=== PATIENT | male | born 1940 | race Two or more races ===

== ENCOUNTER → 2024-10-01 | Outpatient (BNVA) | payer MEDICARE, MEDICAID, SELFPAY | END | disposition home or self-care (01) | PROVIDERS: PCP Nurse Practitioner Family; Referring Provider Nurse Practitioner Family; Visit Provider Nurse Practitioner Family | DX: I10 Essential (primary) hypertension (principal); M25.50 Pain in unspecified joint; R41.3 Other amnesia | CPT/HCPCS: 99213 ==

== ENCOUNTER → 2024-12-17 | Outpatient (BNVA) | payer MEDICARE, MEDICAID, SELFPAY | END | disposition home or self-care (01) | PROVIDERS: PCP Nurse Practitioner Family; Referring Provider Nurse Practitioner Family; Visit Provider Nurse Practitioner Family | DX: Z71.2 Person consulting for explanation of examination or test findings (principal); E78.5 Hyperlipidemia, unspecified; R73.03 Prediabetes | CPT/HCPCS: 99212; G0463 ==

== ENCOUNTER → 2025-02-03 | Outpatient (BNVA) | payer MEDICARE, MEDICAID, SELFPAY | END | disposition home or self-care (01) | PROVIDERS: PCP Nurse Practitioner Family; Referring Provider Nurse Practitioner Family; Visit Provider Nurse Practitioner Family | DX: M25.551 Pain in right hip (principal); R41.3 Other amnesia; R52 Pain, unspecified; R60.9 Edema, unspecified; I10 Essential (primary) hypertension; R53.83 Other fatigue; Z91.199 Patient's noncompliance with other medical treatment and regimen due to unspecified reason | CPT/HCPCS: 85018; 96372; 99215; J1885 ==

== ENCOUNTER → 2025-02-06 | Outpatient (CLI) | payer MEDICARE, MEDICAID, SELFPAY ==
--- NOTE | 2025-02-06 11:47 | XR_ITS ---
Examination: Bilateral hips, AP pelvis, 5 views Technique: AP, lateral views both hips, AP pelvis, 5 views Exam date and time: February 06, 2025 1408 hours INDICATIONS: Right hip pain this week FINDINGS: Moderate osteopenia Moderate narrowing hip joints bilaterally Greater trochanteric bursitis bilaterally Bones of the pelvis intact IMPRESSION: Moderate bilateral narrowing hip joints Bilateral greater trochanteric bursitis
== END | disposition home or self-care (01) ==
LOC: SDIM 11:40
PROVIDERS: PCP Nurse Practitioner Family; Referring Provider Nurse Practitioner Family; Visit Provider Nurse Practitioner Family
DX: M70.62 Trochanteric bursitis, left hip (principal); M70.61 Trochanteric bursitis, right hip; M25.852 Other specified joint disorders, left hip; M25.851 Other specified joint disorders, right hip
CPT/HCPCS: 73522

== ENCOUNTER → 2025-02-06 | Outpatient (BNVA) | payer MEDICARE, MEDICAID, SELFPAY | END | disposition home or self-care (01) | PROVIDERS: PCP Nurse Practitioner Family; Referring Provider Nurse Practitioner Family; Visit Provider Nurse Practitioner Family | DX: Z71.2 Person consulting for explanation of examination or test findings (principal); M25.559 Pain in unspecified hip; M71.9 Bursopathy, unspecified; M25.50 Pain in unspecified joint | CPT/HCPCS: 99212; G0463 ==

== ENCOUNTER → 2025-02-21 | Outpatient (BNVA) | payer MEDICARE, MEDICAID, SELFPAY | END | disposition home or self-care (01) | PROVIDERS: PCP Nurse Practitioner Family; Referring Provider Nurse Practitioner Family; Visit Provider Nurse Practitioner Family | DX: R53.83 Other fatigue (principal); R60.9 Edema, unspecified; Z23 Encounter for immunization | CPT/HCPCS: 90471; 90677; 99213; G0009; J90677 ==

== ENCOUNTER → 2025-03-24 | Outpatient (BNVA) | payer MEDICARE, MEDICAID, SELFPAY | END | disposition home or self-care (01) | PROVIDERS: PCP Nurse Practitioner Primary Care; Referring Provider Nurse Practitioner Primary Care; Visit Provider Nurse Practitioner Primary Care | DX: J20.9 Acute bronchitis, unspecified (principal) | CPT/HCPCS: 87804; 87811; 99214 ==

== ENCOUNTER → 2025-04-10 | Outpatient (BNVA) | payer MEDICARE, MEDICAID, SELFPAY | END | disposition home or self-care (01) | PROVIDERS: PCP Nurse Practitioner Family; Referring Provider Nurse Practitioner Family; Visit Provider Nurse Practitioner Primary Care | DX: N40.0 Benign prostatic hyperplasia without lower urinary tract symptoms (principal) | CPT/HCPCS: 99212; G0463 ==

== ENCOUNTER → 2025-04-17 | Outpatient (BNVA) | payer MEDICARE, MEDICAID, SELFPAY | END | disposition home or self-care (01) | PROVIDERS: PCP Nurse Practitioner Family; Referring Provider Nurse Practitioner Family; Visit Provider Nurse Practitioner Family | DX: Z00.01 Encounter for general adult medical examination with abnormal findings (principal); I10 Essential (primary) hypertension; N40.0 Benign prostatic hyperplasia without lower urinary tract symptoms; E78.5 Hyperlipidemia, unspecified; R73.03 Prediabetes; E66.3 Overweight; Z68.25 Body mass index [BMI] 25.0-25.9, adult; Z91.199 Patient's noncompliance with other medical treatment and regimen due to unspecified reason; Z71.85 Encounter for immunization safety counseling; K02.9 Dental caries, unspecified | CPT/HCPCS: 99173; 99215 ==

== ENCOUNTER → 2025-04-23 | Outpatient (BNVA) | payer MEDICARE, MEDICAID, SELFPAY | END | disposition home or self-care (01) | PROVIDERS: PCP Nurse Practitioner Family; Referring Provider Nurse Practitioner Family; Visit Provider Nurse Practitioner Family | DX: Z71.2 Person consulting for explanation of examination or test findings (principal); N39.0 Urinary tract infection, site not specified; R73.03 Prediabetes; Z91.199 Patient's noncompliance with other medical treatment and regimen due to unspecified reason; E78.5 Hyperlipidemia, unspecified | CPT/HCPCS: 99212; G0463 ==

== ENCOUNTER → 2025-04-28 | Outpatient (BNVA) | payer MEDICARE, MEDICAID, SELFPAY | END | disposition home or self-care (01) | PROVIDERS: PCP Nurse Practitioner Family; Referring Provider Nurse Practitioner Family; Visit Provider Nurse Practitioner Family | DX: N39.0 Urinary tract infection, site not specified (principal) ==

== ENCOUNTER → 2025-05-05 | Outpatient (BNVA) | payer MEDICARE, MEDICAID, SELFPAY | END | disposition home or self-care (01) | PROVIDERS: PCP Nurse Practitioner Family; Referring Provider Nurse Practitioner Family; Visit Provider Nurse Practitioner Family | DX: Z71.2 Person consulting for explanation of examination or test findings (principal); N39.0 Urinary tract infection, site not specified | CPT/HCPCS: 99212; G0463 ==

== ENCOUNTER → 2025-07-29 | Outpatient (BNVA) | payer MEDICARE, MEDICAID, SELFPAY | END | disposition home or self-care (01) | PROVIDERS: PCP Nurse Practitioner Family; Referring Provider Nurse Practitioner Family; Visit Provider Nurse Practitioner Family | DX: L50.9 Urticaria, unspecified (principal); E78.5 Hyperlipidemia, unspecified; I10 Essential (primary) hypertension; Z23 Encounter for immunization | CPT/HCPCS: 90471; 90686; 99213 ==

== ENCOUNTER → 2025-08-08 | Outpatient (BNVA) | payer MEDICARE, MEDICAID, SELFPAY | END | disposition home or self-care (01) | PROVIDERS: PCP Internal Medicine; Referring Provider Internal Medicine; Visit Provider Internal Medicine | DX: N17.9 Acute kidney failure, unspecified (principal); N40.0 Benign prostatic hyperplasia without lower urinary tract symptoms; I10 Essential (primary) hypertension | CPT/HCPCS: 99213 ==

== ENCOUNTER → 2025-09-26 | Outpatient (BNVA) | payer MEDICARE, MEDICAID, SELFPAY | END | disposition home or self-care (01) | PROVIDERS: PCP Internal Medicine; Referring Provider Internal Medicine; Visit Provider Internal Medicine | DX: I12.9 Hypertensive chronic kidney disease with stage 1 through stage 4 chronic kidney disease, or unspecified chronic kidney disease (principal); R97.20 Elevated prostate specific antigen [PSA]; E78.5 Hyperlipidemia, unspecified; N18.31 Chronic kidney disease, stage 3a | CPT/HCPCS: 99203 ==

== ENCOUNTER → 2025-10-13 | Outpatient (CLI) | payer MEDICARE, MEDICAID, SELFPAY ==
--- NOTE | 2025-10-13 15:45 | XR_ITS ---
PA upright chest film on 10/13/2025 at 3:57 p.m. CLINICAL HISTORY: Cough and pulmonary crackles for 2-week Comparison study 02/12/2024 FINDINGS: Since the previous chest x-ray the patient has had a TAVR inserted across the aortic valve in good position. There is mild left ventricular prominence. There is mild calcification of the aortic arch. Both lungs and pleural space are clear normal, pulmonary vascularity is normal. I don't see any significant abnormalities in the bones other than mild osteophyte formation throughout the dorsal spine. There is also minimal wedging of the 11th thoracic vertebra IMPRESSION: 1. Since the previous chest film the patient has had a TAVR inserted across the aortic valve, its position is okay. 2. Minimal cardiomegaly unchanged. 3. Essentially negative chest
== END | disposition home or self-care (01) ==
PROVIDERS: PCP Nurse Practitioner Family; Referring Provider Nurse Practitioner Family; Visit Provider Nurse Practitioner Family
DX: I51.7 Cardiomegaly (principal)
CPT/HCPCS: 71046

== ENCOUNTER → 2025-10-13 | Outpatient (BNVA) | payer MEDICARE, MEDICAID, SELFPAY | END | disposition home or self-care (01) | PROVIDERS: PCP Nurse Practitioner Family; Referring Provider Nurse Practitioner Family; Visit Provider Nurse Practitioner Family | DX: R05.9 Cough, unspecified (principal); M25.50 Pain in unspecified joint; R06.89 Other abnormalities of breathing | CPT/HCPCS: 99213 ==